=== PATIENT | male | born 1950 | race African-American/Black ===

== ENCOUNTER 2021-11-28 15:03 | Emergency (ER) | payer OTHER ==
[2021-11-28] MEDS ORDERED: HYDROcodone/Acetaminophen 7.5/325 mg Tablet ONE (15:31)
== END 2021-11-28 18:35 ==
LOC: EEVIPCON 15:03 → CSHERS 15:03
DX: M25.461 Effusion, right knee (principal); I10 Essential (primary) hypertension; E11.9 Type 2 diabetes mellitus without complications